=== PATIENT | male | born 1985 | race Caucasian/White ===

== ENCOUNTER 2018-11-08 09:23 | Emergency (ER) | payer SELFPAY ==
[2018-11-08 09:31] VITALS: BP 139/70; PULSE 76; TEMP 97.9; BMI 25.1
[2018-11-08] MEDS ORDERED: DIPHTH,PERTUSS(ACELL),TET 0.5 ML DISP.SYRIN IM ONE ×2 (09:44→09:49)
[2018-11-08] MEDS ORDERED: CEPHALEXIN MONOHYDRATE 500 MG CAPSULE (UD) PO ONE (11:25)
[2018-11-08] MEDS ORDERED: CEPHALEXIN MONOHYDRATE 500 MG CAPSULE (UD) ONE (11:28)
--- NOTE | 2018-11-08 11:50 | PDOC ---
History of Present Illness - General Chief Complaint: Laceration Stated Complaint: CUT IN LT. HAND Time Seen by Provider: 11/08/18 09:40 History Source: Patient Exam Limitations: No Limitations Past History - Past Medical History Allergies/Adverse Reactions: Allergies Allergy/AdvReac Type Severity Reaction Status Date / Time No Known Allergies Allergy Verified 11/08/18 09:29 Home Medications: Ambulatory Orders Cephalexin Monohydrate [Keflex -] 500 mg PO Q6H #20 capsule 11/08/18 COPD: No - Immunization History Immunization Up to Date: No - Suicide/Smoking/Psychosocial Hx Smoking History: Never smoked Hx Alcohol Use: No Drug/Substance Use Hx: No *Physical Exam - Vital Signs Last Vital Signs Temp Pulse Resp BP Pulse Ox 97.9 F 76 18 139/70 100 11/08/18 09:29 11/08/18 09:29 11/08/18 09:29 11/08/18 09:29 11/08/18 09:29 - Physical Exam General Appearance: No: Apparent Distress Extremity: positive: Normal Range of Motion, Other (irregular laceration along lateral aspect of L middle finger, sparing nail, around 5 cm in length, L hand with FROM) Integumentary: negative: Swelling, Ecchymosis, Bruising Neurologic: positive: Alert, Normal Mood/Affect Procedures - Laceration/Wound Repair Left Hand 3rd digit Wound Length: 2.6 to 5.0 cm Wound Explored: no foreign body present Wound's Depth, Shape: superficial, irregular Irrigated w/ Saline: Yes Betadine Prep: Yes Anesthesia: 1% Lidocaine Wound Debrided: moderate Wound Repaired With: Sutures Suture Size/Type: 5:0, nylon, other (also used one 4:0 suture prolene (closer to nail)) Number of Sutures: 9 Sterile Dressing Applied: Yes Splint Applied: Yes ED Treatment Course - RADIOLOGY Radiology Studies Ordered: Category Date Time Status FINGER(S) LEFT [RAD] Stat Radiology 11/08/18 09:44 Taken - Medications Given in the ED: ED Medications Discontinued Medications Generic Name Dose Route Start Last Admin Trade Name Freq PRN Reason Stop Dose Admin Cephalexin HCl 500 mg 11/08/18 11:25 11/08/18 11:28 Keflex - PO 11/08/18 11:26 500 mg ONCE ONE Administration Diphtheria/Tetanus/Acell Pertussis 0.5 ml 11/08/18 09:44 11/08/18 09:49 Boostrix - IM 11/08/18 09:45 0.5 ml .ONCE ONE Administration Medical Decision Making - Medical Decision Making 33 y/o M presents with laceration to L hand middle finger after getting it cut with glass today around 9 AM (was carrying a window and it broke). Unsure of last tetanus. Xray showed no FB Lac repaired Tetanus updated Given location, will start on Keflex for short term 11/08/18 11:46 *DC/Admit/Observation/Transfer Diagnosis at time of Disposition: Hand laceration Qualifiers: Encounter type: initial encounter Foreign body presence: without foreign body Laterality: left Qualified Code(s): S61.412A - Laceration without foreign body of left hand, initial encounter - Discharge Dispostion Disposition: HOME Condition at time of disposition: Stable Decision to Admit order: No - Prescriptions Prescriptions: Cephalexin Monohydrate [Keflex -] 500 mg PO Q6H #20 capsule - Referrals - Patient Instructions Printed Discharge Instructions: DI for Laceration Repair Additional Instructions: Thank you for choosing [facility]. It was a pleasure taking care of you. Keep site dry for next 24 hours Afterward, you may clean with soap and water gently Take antibiotics as indicated Return in 7-10 days for suture removal Keep splint on to prevent bending of finger Return to the Emergency Department if your symptoms worsen or persist, you have fever, swelling, redness, pustular discharge, streaking or other concerning symptoms. Pool por elegir el [facility]. Fue un placer cuidar de ti. Mantener el sitio seco sean las prximas 24 horas. Despus, puede limpiar con jabn y agua suavemente. Shelly antibiticos misha se indica. Retorno en 7-10 allred para remocin de sutura Mantenga la frula para evitar que se doble el dedo. Regrese al Departamento de Emergencias si jose f sntomas empeoran o persisten, tiene fiebre, hinchazn, enrojecimiento, secrecin pustular, estras u otros sntomas relacionados. Print Language: PANAMANIAN - Post Discharge Activity
== END 2018-11-08 11:56 | disposition home or self-care (01) ==
LOC: JERFT 09:23
PROC: 3E0234Z Introduction of Serum, Toxoid and Vaccine into Muscle, Percutaneous Approach (ICD-10-PCS; principal; 2018-11-08)
PROC: 0HQGXZZ Repair Left Hand Skin, External Approach (ICD-10-PCS; 2018-11-08)
DX: S61.313A Laceration without foreign body of left middle finger with damage to nail, initial encounter (principal); W25.XXXA Contact with sharp glass, initial encounter; Y93.89 Activity, other specified; Y92.89 Other specified places as the place of occurrence of the external cause; Y99.8 Other external cause status
CPT/HCPCS: 73140-TC-LT-FY; 90715; 99283-25